=== PATIENT | male | born 1935 | race Caucasian/White ===

== ENCOUNTER 2017-07-10 14:16 | Inpatient (IN) | payer MEDICARE ==
[2017-07-10] MEDS ORDERED: NS 0.9% 1000 ML* 1,000 ML IV ONE (14:40)
--- NOTE | 2017-07-10 15:06 | RAD ---
Indication: Syncope. 2 views of the chest including dual energy PA views demonstrate no mediastinal shift. Heart is of normal size and configuration. Lung flanagan are clear. IMPRESSION: No active cardiopulmonary disease is identified.
--- NOTE | 2017-07-10 15:10 | RAD ---
HISTORY: Syncope COMPARISONS: None TECHNIQUE: Multiple contiguous axial CT scans were obtained of the head without intravenous contrast. FINDINGS: HEMORRHAGE/INFARCT: There is no hemorrhage or acute infarct. MASSES/SHIFT: There is no mass or shift. EXTRA-AXIAL SPACES: There are no extra-axial fluid collections. SULCI AND VENTRICLES: There is diffuse and proportional enlargement of the sulci and ventricles. There is disproportionate enlargement of the temporal horns of lateral ventricles CEREBRUM: There is hypoattenuation of the periventricular and subcortical white matter. There is partial volume loss of the mesial temporal lobes BRAINSTEM: There are no focal parenchymal abnormalities. CEREBELLUM: There are no focal parenchymal abnormalities. VESSELS: The vessels are grossly normal. PARANASAL SINUSES: The paranasal sinuses are clear. ORBITS: The orbits are unremarkable. BONES AND SOFT TISSUE: No bone or soft tissue abnormalities are noted. OTHER: None IMPRESSION: 1. NO ACUTE INTRACRANIAL PATHOLOGY. 2. DIFFUSE INVOLUTIONAL CHANGE WITH CHRONIC SMALL VESSEL ISCHEMIC CHANGES.. 3. THERE IS DISPROPORTIONATE VOLUME LOSS OF THE MESIAL TEMPORAL LOBES, WHILE NONSPECIFIC THIS CAN BE ASSOCIATED WITH CERTAIN TYPES OF DEMENTIA
[2017-07-10 15:41] LABS: Hematocrit 43 % (42-52); Hemoglobin 14.5 g/dl (14.0-18.0); Mean Corpuscular HGB Conc 33 g/dl (31-36); Mean Corpuscular Hemoglobin 35 pg (27-31); Mean Corpuscular Volume 103 fL (80-94); Red Cell Distribution Width 13 % (10.5-15); White Blood Count 10.5 10^3/ul (3.5-10.8)
[2017-07-10 15:49] LABS: Add Diff/Slide Review? Slide Review Added; Comments Flag Yes
[2017-07-10 15:58] LABS: ALT 12 U/L (7-52); Albumin 4.3 g/dL (3.2-5.2); Alkaline Phosphatase 49 U/L (34-104); B Type Natriuretic Peptide 47 pg/mL; BUN/Creatinine Ratio 14.3 (8-20); Blood Urea Nitrogen 15 mg/dL (6-24); CO2 Carbon Dioxide 28 mmol/L (22-32); Calcium 9.6 mg/dL (8.6-10.3); Chloride 104 mmol/L (101-111); EGFR Non-African American 67.6 (>60); Globulin 2.6 g/dL (2-4); Glucose 106 mg/dL (70-100); Sodium 139 mmol/L (133-145); Total Protein 6.9 g/dL (6.4-8.9)
[2017-07-10 16:05] LABS: Anion Gap 7 mmol/L (2-11)
[2017-07-10 16:15] LABS: TSH (Thyroid Stimulating Horm) 2.59 mcIU/mL (0.34-5.60)
[2017-07-10 16:53] LABS: Magnesium 2.2 mg/dL (1.9-2.7)
[2017-07-10] MEDS ORDERED: Acetaminophen TAB* 325 MG PO PRN (17:05)
[2017-07-10] MEDS ORDERED: Ondansetron INJ* 2 MG/ML VIAL IV PRN (17:05)
--- NOTE | 2017-07-10 17:57 | ED ---
Casandra Gomez Edward, scribed for Emiliano Farah MD on 07/10/17 at 1442 . Syncope/Near Syncope - HPI Summary HPI Summary: 81 y/o male presents to ED s/p sudden onset syncopal episode today while the patient was having lunch with his . Witnessed LOC for a few seconds. Per , the patient suddenly fell forward and became unresponsive for a brief moment. Associated sx: incontinece, diaphoresis after the episode. Denies ESTEVEZ, CP , SOB or palpitations. - History Of Current Complaint Time Seen by Provider: 07/10/17 14:35 Hx Obtained From: Patient Onset/Duration: Sudden Onset Timing: Frequency Of Episodes - 1 Context: Witnessed, Loss Of Consciousness Associated Signs And Symptoms: Diaphoresis, Other - Incontinence - Allergies/Home Medications Allergies/Adverse Reactions: Allergies Allergy/AdvReac Type Severity Reaction Status Date / Time Penicillins Allergy Unknown Verified 07/10/17 17:22 Reaction Details Home Medications: Home Medications Aspirin EC Low Dose* [Ecotrin EC Low Dose 81 MG*] 81 mg PO DAILY 07/10/17 [ History Confirmed 07/10/17] Calcium Carbonate [Calcium 600] 600 mg PO DAILY 07/10/17 [History Confirmed ] Levothyroxine TAB* [Synthroid TAB*] 125 mcg PO QAM 07/10/17 [History Confirmed 07/10/17] Metoprolol Succinate XL TAB* [Toprol XL TAB*] 25 mg PO DAILY 07/10/17 [History Confirmed 07/10/17] [place]-3 Fatty Acids (Nf) [Fish Oil (NF)] 2,000 mg PO BID 07/10/17 [History Confirmed 07/10/17] Rivastigmine CAP(NF) [Exelon (NF)] 4.5 mg PO BID 07/10/17 [History Confirmed ] PMH/Surg Hx/FS Hx/Imm Hx Previously Healthy: No Endocrine/Hematology History: Reports: Hx Thyroid Disease - 2000 THYROIDECTOMY Cardiovascular History: Reports: Other Cardiovascular Problems/Disorders - ON METOPROLOL-UNKNOWN REASON Musculoskeletal History: Reports: Hx Arthritis - GENERAL Sensory History: Reports: Hx Cataracts - RIGHT EYE, Hx Contacts or Glasses - GLASSES Denies: Hx Hearing Aid Opthamlomology History: Reports: Hx Cataracts - RIGHT EYE, Hx Contacts or Glasses - GLASSES Neurological History: Reports: Hx Dementia, Hx Migraine - OCCASSIONAL, Other Neuro Impairments/Disorders - ALZHEIMERS - Surgical History Surgery Procedure, Year, and Place: THYROIDECTOMY [facility]. TUMOR OFF BACK Hx Anesthesia Reactions: No - Social History Alcohol Use: Daily Alcohol Amount: 1 DRINK/DAY Hx Substance Use: No Substance Use Type: Reports: None Hx Tobacco Use: No Smoking Status (MU): Former Smoker Amount Used/How Often: PIPE X 10 YEARS Have You Smoked in the Last Year: Yes Review of Systems Positive: Skin Diaphoresis Eyes: Negative ENT: Negative Cardiovascular: Negative Negative: Palpitations, Chest Pain Respiratory: Negative Negative: Shortness Of Breath Gastrointestinal: Negative Positive: incontinence Musculoskeletal: Negative Skin: Negative Positive: Syncope. Negative: Headache Psychological: Normal All Other Systems Reviewed And Are Negative: Yes Physical Exam - Summary Physical Exam Summary: VITAL SIGNS: Reviewed. GENERAL: ~Patient is a well-developed and nourished male who is lying comfortable in the stretcher. ~Patient is not in any acute respiratory distress. HEAD AND FACE: No signs of trauma. ~No ecchymosis, hematomas or skull depressions. No sinus tenderness. EYES: PERRLA, EOMI x 2, No injected conjunctiva, no nystagmus. EARS: Hearing grossly intact. Ear canals and tympanic membranes are within normal limits. MOUTH: Oropharynx within normal limits. NECK: Supple, trachea is midline, no adenopathy, no JVD, no carotid bruit, no c- spine tenderness, neck with full ROM. CHEST: Symmetric, no tenderness at palpation LUNGS: Clear to auscultation bilaterally. No wheezing or crackles. CVS: Regular rate and rhythm, S1 and S2 present, no murmurs or gallops appreciated. ABDOMEN: Soft, non-tender. No signs of distention. No rebound no guarding, and no masses palpated. Bowel sounds are normal. EXTREMITIES: FROM in all major joints, no edema, no cyanosis or clubbing. NEURO: Alert but not oriented. No acute neurological deficits. Speech is normal and follows commands. SKIN: Dry and warm Triage Information Reviewed: Yes Vital Signs Reviewed: Yes Diagnostics - Laboratory Result Diagrams: 07/10/17 15:25 07/10/17 16:33 Lab Statement: Any lab studies that have been ordered have been reviewed, and results considered in the medical decision making process. - Radiology CXR Xray Interpretation: No Acute Changes - No active cardiopulmonary disease is identified. Radiology Interpretation Completed By: Radiologist - CT BRAIN CT CT Interpretation: No Acute Changes - 1. NO ACUTE INTRACRANIAL PATHOLOGY. 2. DIFFUSE INVOLUTIONAL CHANGE WITH CHRONIC SMALL VESSEL ISCHEMIC CHANGES.. 3. THERE IS DISPROPORTIONATE VOLUME LOSS OF THE MESIAL TEMPORAL LOBES, WHILE NONSPECIFIC THIS CAN BE ASSOCIATED WITH CERTAIN TYPES OF DEMENTIA CT Interpretation Completed By: Radiologist - EKG 1 EKG Interpretation: 15:21 - SINUS BRADYCARDIA @ 50 BPM w/ NO ST ELEVATIONS Course/Dx Assessment/Plan: 81 y/o male presents to ED s/p sudden onset syncopal episode today while the patient was having lunch with his . Witnessed LOC for a few seconds. Per , the patient suddenly fell forward and became unresponsive for a brief moment. Associated sx: incontinece, diaphoresis after the episode. Denies ESTEVEZ, CP, SOB or palpitations. CXR SHOWS No active cardiopulmonary disease is identified. BRAIN CT SHOWS 1. NO ACUTE INTRACRANIAL PATHOLOGY. 2. DIFFUSE INVOLUTIONAL CHANGE WITH CHRONIC SMALL VESSEL ISCHEMIC CHANGES.. 3. THERE IS DISPROPORTIONATE VOLUME LOSS OF THE MESIAL TEMPORAL LOBES, WHILE NONSPECIFIC THIS CAN BE ASSOCIATED WITH CERTAIN TYPES OF DEMENTIA. EKG 15:21 - SINUS BRADYCARDIA @ 50 BPM w/ NO ST ELEVATIONS. Tests are without significant abnormalities. At this point, the pt was given iv fluids for rehydration. B/c of the syncopal episode and urinary incontinence I discussed the case with Dr. Capone who accepted the case for admission. The pt is hemodynamically stable and A&Ox3. - Diagnoses Provider Diagnoses: Syncope - Physician Notifications Discussed Care of Patient With: Lizzy Capone Time Discussed With Above Provider: 16:30 Instructed by Provider To: Admit As Inpatient Discharge - Discharge Plan Condition: Stable Disposition: ADMITTED TO [facility] Referrals: Yohannes Benoit MD [Primary Care Provider] - The documentation as recorded by the Casandra person Edward accurately reflects the service I personally performed and the decisions made by , Emiliano Farah MD.
--- NOTE | 2017-07-10 18:30 | RAD ---
INDICATION: Syncope, incontinence. COMPARISON: Comparison is made with a prior CT of the brain from July 10, 2017. TECHNIQUE: Sagittal T1, axial T1, T2, susceptibility, FLAIR and diffusion weighted images were obtained. There is artifact from dental prostheses which limits the exam slightly. FINDINGS: The ventricles, cisterns and sulci are prominent consistent with diffuse atrophy. There are focal areas of increased signal intensity on T2-weighted images present in the subcortical and periventricular white matter most consistent with moderate chronic small vessel ischemic changes. No other focal abnormality or mass effect is seen. No areas of restricted diffusion are present. There is no evidence for infarct or hemorrhage. The visualized portion of the paranasal sinuses and mastoid air cells appear clear. IMPRESSION: 1. SLIGHTLY LIMITED EXAM, NO EVIDENCE FOR ACUTE FINDING. 2. ATROPHY AND FINDINGS CONSISTENT WITH CHRONIC SMALL VESSEL ISCHEMIC CHANGES.
[2017-07-10] MEDS: Enoxaparin(*) 40 MG/0.4 ML SYR SUBCUT SCH (18:57)
--- NOTE | 2017-07-10 20:29 | HP ---
CC: Dr. Yohannes Benoit * ADMISSION HISTORY AND PHYSICAL: DATE OF ADMISSION: 07/10/17 PRIMARY CARE PROVIDER: Dr. Yohannes Benoit. ADMITTING PROVIDER: GUNNER Lovett SUPERVISING PHYSICIAN: Malissa De Los Santos MD.* (DICTATED BY GUNNER LOVETT) CHIEF COMPLAINT: Near syncope and incontinence. HISTORY OF PRESENT ILLNESS: This is an 81-year-old gentleman with history of Alzheimer's type dementia, hypothyroidism, and hypertension, who presented to the emergency department after a near syncope episode associated with urinary incontinence witnessed by his earlier today. The patient was seated outside with his and one of her friends and they were having lunch, when suddenly he put his head down on the table and stated that he could not see and was noted to be excessively diaphoretic and incontinent of urine. The patient' s does not believe that he lost consciousness as he seemed to be responsive throughout, but just somewhat slow and he seems to be increasingly confused. The episode lasted approximately 5 minutes. No generalized tonic- clonic movement or collapse. The patient is unable to recall if there was any prodrome of symptoms. He denies any recent illnesses and no new medications. The patient's says the only thing that stood out of the ordinary was that he wanted to go to bed quite early last night, but otherwise he has not had any other recent complaints. PAST MEDICAL HISTORY: 1. Dementia. 2. Hypothyroidism. 3. Hypertension. PAST SURGICAL HISTORY: 1. Thyroidectomy. 2. Right total hip replacement. HOME MEDICATIONS: 1. Aspirin 81 mg p.o. daily. 2. Calcium carbonate 600 mg p.o. daily. 3. Vitamin B12 1000 mcg p.o. daily. 4. Levothyroxine 125 mcg p.o. daily. 5. Metoprolol succinate 25 mg p.o. daily. 6. Multivitamin 1 tablet p.o. daily. 7. Lares-3 fatty acids 2000 mg p.o. twice daily. 8. Psyllium 1 tablespoon p.o. daily. 9. Exelon 4.5 mg p.o. twice daily. SOCIAL HISTORY: The patient lives at home with his . No significant smoking history and he consumes 1 glass of wine daily. REVIEW OF SYSTEMS: As noted above in HPI. The patient states that he is otherwise feeling well. Currently denying chest pain, shortness of breath, nausea, vomiting, abdominal pain, recent fever, etc. PHYSICAL EXAMINATION GENERAL: This is a very pleasant 81-year-old gentleman accompanied by his , who is alert and responsive. He is moderately confused and unable to provide a great history as he does carry the diagnosis of dementia that is probably moderate. VITAL SIGNS: At the time of presentation in the emergency department, temperature was 98.6 degrees Fahrenheit, pulse 50 beats per minute, respiratory rate 16 per minute, oxygen saturation 98% on room air, and blood pressure 126/ 74 mmHg. HEENT: Head is normocephalic, atraumatic. Mucous membranes are pink and moist. RESPIRATORY: Lungs are clear to auscultation without wheezes, crackles, or rhonchi. CARDIOVASCULAR: Heart has a regular rate and rhythm without murmurs, rubs, or gallops. ABDOMEN: Soft and nontender to palpation. EXTREMITIES: No edema and distal pulses intact. NEUROLOGIC: The patient has moderate dementia. Short-term memory is not intact. He is alert and appropriately responsive; however, his cranial nerves II through XII are grossly intact. Strength is globally intact and symmetric. Sensation is grossly intact. [id number] testing is within normal limits. LABORATORY DATA: CBC shows a white blood cell count of 10,500, hemoglobin of 14.5 g/dL, and platelet count unable to be calculated as sample was clumped. Comprehensive metabolic panel is essentially within normal limits with a sodium of 139, potassium 3.7, serum bicarb 28, anion gap of 7, BUN of 15, creatinine 1.05. Lactic acid of 1.5, magnesium 2.2. Transaminase and total bilirubin within normal limits. Troponin negative at 0.00. Ammonia normal at 31. TSH normal at 2.5. IMAGING: EKG shows normal sinus rhythm without ischemic changes. Chest x-ray shows no acute process. CT of the brain shows no acute disease with chronic microvascular changes. ASSESSMENT AND PLAN: This is an 81-year-old gentleman with moderate Alzheimer' s dementia, hypothyroidism, and hypertension who presented after a near syncope episode associated with urinary incontinence who is now asymptomatic. The patient will be admitted to observation status for further assessment. 1. Near syncope - the patient is currently asymptomatic with a negative initial workup. Consider dysrhythmia versus transient ischemic attack to explain his current presentation. Plan to obtain an MRI of the brain and an echocardiogram and maintain continuous telemetry monitoring. Also requested Neurology consultation. 2. Hypertension - the patient is near normotensive in the emergency department , but is noted to be bradycardic with heart rate in the 50s. His bradycardia may have contributed to his symptoms as well. We will plan to hold his metoprolol at this time. 3. Hypothyroidism - TSH is within normal limits and plan to continue his current dose of levothyroxine. 4. Dementia - this seems to be moderate and previous history states Alzheimer' s type. There is no significant behavioral concerns at this time. 5. Code status. The patient is DNR, confirmed by his and MOLST signed. 6. DVT prophylaxis - the patient will be started on Lovenox subcu. 7. Healthcare proxy is patient's . DISPOSITION: The patient is being admitted to observation status with anticipated discharge for tomorrow. GUNNER LOVETT [id number]/CPS #: [id number] DEREK
[2017-07-10] MEDS ORDERED: RIVASTIGMINE 1.5 MG PO SCH (21:00)
[2017-07-10] MEDS: RIVASTIGMINE 4.5 MG PO SCH (21:39)
[2017-07-10 22:39] LABS: Urine Bilirubin Negative (Negative); Urine Glucose Negative (Negative); Urine Nitrite Negative (Negative)
[2017-07-11 05:32] LABS: Calcium 9.5 mg/dL (8.6-10.3); EGFR Non-African American 71.5 (>60); Potassium 3.6 mmol/L (3.5-5.0)
[2017-07-11] MEDS ORDERED: Levothyroxine TAB* 125 MCG TAB PO SCH (09:00)
[2017-07-11] MEDS: Aspirin EC Low Dose* 81 MG TAB.EC PO SCH (09:10)
[2017-07-11] MEDS: RIVASTIGMINE 4.5 MG PO SCH ×2 (09:10→21:34)
[2017-07-11] MEDS: Cyanocobalamin TAB* 500 MCG PO SCH (09:10)
--- NOTE | 2017-07-11 12:47 | ECHO ---
Patient: BRANDIN BRADY [facility] Rec#: [id number] : 1935 Date: 07/11/2017 Age: 81y Height: 182.88 cm / 72.0 in Weight: 68.04 kg / 150.0 lbs Sex: M BSA: 1.89 Room#: 437 Admit Date#: 07/10/2017 Type: Inpatient Referring: Gurjit Lackey Reading: Maria De Jesus Suh MD Follow Up Rep: Annika Dubon RDCS CC: Yohannes Benoit MD CC: Jazmín Jarvis Transthoracic Echocardiogram Indication: Syncope BP: 137/65 HR: 47 Rhythm: Bradycardia Findings History: Alzeheimer's, hypothyroidism,HTN. Technical Comments: The study quality is fair. Completed at 0940. Left Ventricle: There is a focal wall motion abnormality present.Very base of the posterior wall is severely hypo to akinetic, small focal area seen on long axis and 3 chamber views. There is normal left ventricular systolic function. The estimated ejection fraction is 55-60%. Abnormal left ventricular diastolic function is observed. Right Ventricle: The right ventricular cavity size is normal. The right ventricular global systolic function is normal. Right Atrium: The right atrial cavity size is normal. Aortic Valve: The aortic valve structure is not well visualized. There is no evidence of aortic regurgitation. There is no evidence of aortic stenosis. Mitral Valve: The mitral valve leaflets appear normal. There is mild mitral regurgitation. There is no evidence of mitral stenosis. Tricuspid Valve: The tricuspid valve leaflets are normal. There is mild to moderate tricuspid regurgitation. There is evidence of mild pulmonary hypertension. There is no tricuspid stenosis. Pulmonic Valve: The pulmonic valve appears normal. There is no evidence of pulmonic regurgitation. There is no pulmonic stenosis. Pericardium: The pericardium appears normal. Aorta: The ascending aorta is not well visualized. The aortic arch is not well visualized. There is no dilation of the aortic root. Pulmonary Artery: The main pulmonary artery is not well visualized. Venous: The venous system is not well visualized. Conclusions There is a focal wall motion abnormality present.Very base of the posterior wall is severely hypo to akinetic, small focal area seen on long axis and 3 chamber views. There is normal left ventricular systolic function. The estimated ejection fraction is 55-60%. Abnormal left ventricular diastolic function is observed. The right ventricular global systolic function is normal. There is mild to moderate tricuspid regurgitation. There is mild mitral regurgitation. There is evidence of mild pulmonary hypertension: 36 mmHg. No prior echo to compare. Measurements Name Value Normal Range RVDdMajor (2D) 3.6 cm (2.2 - 4.4) RAd ISD 4CH 4.6 cm (3.4 - 4.9) RA (A4C)W 3.4 cm (2.9 - 4.6) IVSd (2D) 0.6 cm (0.6 - 1) LVPWd (2D) 1 cm (0.6 - 1) LVIDd (2D) 4.4 cm (3.6 - 5.4) LVIDs (2D) 3 cm - LV FS (2D) 32 % (25 - 45) Aortic Annulus 1.5 cm (1.4 - 2.6) Ao root diameter (2D) 2.6 cm (2.1 - 3.5) LA dimension (AP) 2D 2.8 cm (2.3 - 3.8) LAd ISD 4CH 4 cm (2.9 - 5.3) LA ISD 4CH W 2.9 cm (2.5 - 4.5) Name Value Normal Range LA ESV SP 4CH (A/L) 38 ml - LA ESV SP 2CH (A/L) 35 ml - LA ESV BP (A/L) 37 ml - LA ESV BP (A/L) index 18.62 ml/m2 - LA ESV SP 4CH (MOD) 31 ml - LA ESV SP 2CH (MOD) 34 ml - Name Value Normal Range MV E-wave Vmax 0.7 m/sec - MV deceleration time 230 msec - MV A-wave Vmax 0.6 m/sec - MV E:A ratio 1.04 ratio - LV septal e' Vmax 0.07 m/sec - LV lateral e' Vmax 0.08 m/sec - LV E:e' septal ratio 10 ratio - LV E:e' lateral ratio 8.75 ratio - Name Value Normal Range AV Vmax 1.2 m/sec - AV VTI 27.3 cm - AV peak gradient 5.97 mmHg - AV mean gradient 2.6 mmHg - LVOT Vmax 0.8 m/sec - LVOT VTI 17.5 cm - LVOT peak gradient 2.69 mmHg - LVOT mean gradient 1.06 mmHg - Name Value Normal Range TR Vmax 2.7 m/sec - TR peak gradient 28 mmHg - RAP 8 mmHg - RVSP 36 mmHg - IVC diameter 2 cm - Name Value Normal Range PV Vmax 0.8 m/sec - PV peak gradient 2.53 mmHg -
--- NOTE | 2017-07-11 14:03 | PN ---
Subjective Date of Service: 07/11/17 Interval History: Patient has had no recurrent sx's. Denies CP, SOB, abd pain, n/v, dizziness, vision changes. He has been up and walking around the unit with his . Objective Active Medications: Acetaminophen (Tylenol Tab*) 650 mg PO Q4H PRN PRN Reason: FEVER/PAIN Aspirin (Aspirin Ec Low Dose*) 81 mg PO DAILY [facility] Last Admin: 07/11/17 09:10 Dose: 81 mg Cyanocobalamin (Vitamin B12 Tab*) 1,000 mcg PO DAILY [facility] Last Admin: 07/11/17 09:10 Dose: 1,000 mcg Enoxaparin Sodium (Lovenox(*)) 40 mg SUBCUT Q24H [facility] Last Admin: 07/10/17 18:57 Dose: 40 mg Levothyroxine Sodium (Synthroid Tab*) 125 mcg PO 0600 [facility] Pto: Rivastigmine 4. (5 Mg Capsules) 1 admin PO BID [facility] Last Admin: 07/11/17 09:10 Dose: 1 admin Ondansetron HCl (Zofran Inj*) 4 mg IV Q4H PRN PRN Reason: NAUSEA/VOMITING Vital Signs: Temp Pulse Resp BP Pulse Ox 97.3 F 50 16 138/71 100 07/11/17 11:21 07/11/17 11:21 07/11/17 11:21 07/11/17 11:21 07/11/17 11:21 Appearance: Well appearing elderly gentleman with moderate dementia accompanied by his . Respiratory: Symmetrical Chest Expansion and Respiratory Effort, Clear to Auscultation Cardiovascular: NL Sounds; No Murmurs; No JVD, RRR Extremities: No Edema Neurological: - - alert and appropriate Result Diagrams: 07/10/17 15:25 07/11/17 05:05 Diagnostic Imaging: CT brain - NAD CXR - NAD MRI brain - NAD Telemetry - sinus, perhaps a short run of afib and intermittent LBBB Assess/Plan/Problems-Billing Assessment: This is an 81 yo gentleman with moderate dementia, hypothyroidism and HTN who presented after a near syncope event and acute bladder incontinence. - Patient Problems (1) Near syncope Comment: Uncertain etiology, likely cardiac dysrhythmia Intermittent LBBB and a short run of afib seen on tele with hypokinesis noted on echo without prior for comparison or a known h/o AMI Will plan for stress test tomorrow to help further stratify acuity of WMA and whether these brief changes on telemetry are related to ischemia (2) Alzheimer disease Comment: Moderate, no behavior concerns (3) Hypertension Comment: Metoprolol held due to bradycardia (4) Hypothyroidism Comment: TSH WNL, cont levothyroxine (5) DNR (do not resuscitate) Comment: signed MOLST (6) DVT prophylaxis Comment: SQ lovenox Status and Disposition: Transition to inpatient. Pending stress test for tomorrow
[2017-07-11] MEDS: Enoxaparin(*) 40 MG/0.4 ML SYR SUBCUT SCH (18:00)
[2017-07-12] MEDS ORDERED: Levothyroxine TAB* 125 MCG TAB PO SCH (06:00)
[2017-07-12 07:47] VITALS: BP 135/85
[2017-07-12] MEDS: RIVASTIGMINE 4.5 MG PO SCH (07:53)
[2017-07-12] MEDS: Aspirin EC Low Dose* 81 MG TAB.EC PO SCH (07:53)
[2017-07-12] MEDS: Cyanocobalamin TAB* 500 MCG PO SCH (07:53)
[2017-07-12] MEDS ORDERED: Regadenoson* 0.4 MG/5 ML SYRINGE ONE (11:14)
--- NOTE | 2017-07-12 13:10 | RAD ---
Edited for charges. Indication: Left bundle branch block, hypokinesis. Myocardial perfusion scan was performed utilizing 1 day protocol. 10.7 mCi of technetium 99m tetrofosmin was injected for the rest portion of the study. Pharmacological stress was applied and 25.7 mCi of technetium 99m tetrofosmin was then injected. CT could not be performed for attenuation correction. The left ventricle appears normal in size. Inferior wall photopenia is present which is felt to represent diaphragmatic attenuation as it appears to be fixed and slightly more prominent on the rest than on the stress images. The ejection fraction at stress is 53%. Evaluation of wall motion shows no evidence of focal wall motion abnormality. IMPRESSION: Fixed defect in the inferior wall extending into the septum likely artifactual. No definite reversible perfusion defects identified. ASSESSMENT: Low risk Based on imaging criteria from ACC/AHA 2002 Guideline Update for the Management of Patients With Chronic Stable Angina Table 23. Noninvasive Risk Stratification. MTDD
--- NOTE | 2017-07-12 23:33 | DS ---
CC: Guevara Leija DO * DISCHARGE SUMMARY: DATE OF ADMISSION: 07/10/17 DATE OF DISCHARGE: 07/12/17 PRIMARY CARE PROVIDER: Guevara Leija DO DISCHARGING PROVIDER: GUNNER Lovett. SUPERVISING PHYSICIAN: Dr. Malissa De Los Santos. * (DICTATED BY GUNNER LOVETT) PRIMARY DISCHARGE DIAGNOSES: 1. Near syncope with suspected dysrhythmia. 2. Intermittent left bundle branch block, on telemetry. 3. Bradycardia. SECONDARY DISCHARGE DIAGNOSES: 1. Alzheimer's disease, which is moderate without behavior concerns. 2. Hypertension - the patient has been bradycardic, but mildly hypertensive throughout his hospital stay, metoprolol was discontinued. 3. Hypothyroidism - normal TSH and levothyroxine continued. DISCHARGE MEDICATIONS: 1. Aspirin 81 mg p.o. daily. 2. Calcium carbonate 600 mg p.o. daily. 3. Vitamin B12 1000 mcg p.o. daily. 4. Levothyroxine 125 mcg p.o. daily. 5. Multivitamin 1 tablet p.o. daily. 6. Fish oil 2000 mg p.o. b.i.d. 7. Psyllium 1 tablespoon p.o. daily. 8. Exelon 4.5 mg p.o. twice daily. Medication changes: 1. Discontinue metoprolol. HOSPITAL IMAGIN. CT of the brain shows no acute intracranial pathology, does have diffuse involutional change with chronic small vessel ischemic changes. 2. Chest x-ray shows no acute process. 3. MRI of the brain shows atrophy and findings consistent with chronic small vessel ischemic changes, but no acute pathology. 4. Nuclear stress test is read as low risk. He has a fixed defect in the inferior wall extending into the septum that may be artifact. No area of reversible perfusion defects identified. EF was measured at 53%. 5. Transthoracic echocardiogram shows a left ventricular ejection fraction of 55% to 60% with a small focus of hypokinesis at the base of the posterior wall without significant valvular disease. HOSPITAL COURSE: This is a very pleasant 81-year-old gentleman with moderate Alzheimer's type dementia, hypothyroidism and hypertension who presented to the emergency department by ambulance after a near syncopal episode that occurred while eating lunch with his . He was seated outside when suddenly he placed his head down on the table and told his that he could not see. She noted him to be extremely diaphoretic and reported increasing confusion. She believes that he did not fully lose consciousness. No seizure-like activity was noted, but he did lose his bladder function. The patient states that his symptoms resolved by the time he reached the emergency department. Initial labs were unremarkable. EKG showed a normal sinus rhythm. Initial troponin was negative. The patient was subsequently admitted for further evaluation. The case was initially discussed with Neurology who felt that it was unlikely that his acute episode was seizure related. An MRI was obtained of his brain, which was negative for acute pathology. He was placed on telemetry and an echocardiogram completed. On telemetry, he appeared to have an occasional left bundle branch block that was unfortunately never caught on EKG, but remained asymptomatic. Echocardiogram showed a small area of hypokinesis at the base of the posterior wall without prior echo for comparison and he did have a preserved ejection fraction. The patient subsequently underwent nuclear stress testing to establish whether ischemia or infarct was responsible for his wall motion abnormalities. Stress test demonstrated this area at the inferior wall being likely infarct as there was no area of reversible ischemia and it appeared to be a fixed defect. The patient again remained asymptomatic throughout his hospital stay and this case was discussed with poultry inseminator, Dr. Winston, who recommended no further intervention at this time, but a Holter monitor would be helpful to capture additional dysrhythmia. The patient was also noted to be bradycardic throughout his hospital stay and metoprolol succinate was held, but he remained with a heart rate in the 50s or so. During his stress test, his maximum heart rate is not reported and information that I can view at this time, but due to his persistent bradycardia, would not recommend restarting his metoprolol and Cardiology agrees with this. DISPOSITION AND DISCHARGE PLANNING: The patient is being discharged to home. His acute episode was likely due to dysrhythmia and he will be placed on a Holter monitor for the next 24 hours and recommend followup with his primary care provider. Metoprolol has been discontinued as discussed above. Would recommend the results of Holter monitor followed up by his primary care provider and if abnormal, refer to outpatient Cardiology for further evaluation. GUNNER LOVETT [id number]/[facility] #: [id number] DEREK
== END 2017-07-12 15:38 | disposition home or self-care (01) | DRG 310 ==
LOC: ED 14:16 → MEDTELE 17:05 → OBSVTOIN 07-11 14:04
PROVIDERS: ADMIT Internal Medicine; ATTEND Internal Medicine
PROC: 4A12XM4 Monitoring of Cardiac Stress, External Approach (ICD-10-PCS; principal; 2017-07-12)
DX: I49.9 Cardiac arrhythmia, unspecified (principal); G30.9 Alzheimer's disease, unspecified; I44.7 Left bundle-branch block, unspecified; F02.80 Dementia in other diseases classified elsewhere, unspecified severity, without behavioral disturbance, psychotic disturbance, mood disturbance, and anxiety; I10 Essential (primary) hypertension; Z88.0 Allergy status to penicillin; M13.80 Other specified arthritis, unspecified site; H26.9 Unspecified cataract; Z87.891 Personal history of nicotine dependence; G43.909 Migraine, unspecified, not intractable, without status migrainosus; R32 Unspecified urinary incontinence; Z96.641 Presence of right artificial hip joint; E03.9 Hypothyroidism, unspecified; Z66 Do not resuscitate; Z79.82 Long term (current) use of aspirin
CPT/HCPCS: 36415; 70450; 70551; 71020; 78452; 80048; 80053; 81003; 82140; 83605; 83735; 83880; 84443; 84484; 85025; 93005; 93017; 93225; 93306; A9270-GY; A9502; G0378; J1650; J2785